=== PATIENT | female | born 1955 | race Caucasian/White ===

== ENCOUNTER → 2023-05-27 13:12 | Outpatient (REF) | payer MEDICARE, SELFPAY | LOC: RSP 13:12 | PROVIDERS: ATTENDING PHYSICIAN Internal Medicine; FAMILY PHYSICIAN Physician Assistant Medical | DX: R06.09 Other forms of dyspnea (principal) | CPT/HCPCS: 94727; 94729; 88738; 94010 ==

== ENCOUNTER 2023-10-30 22:02 | Emergency (ER) | payer MEDICARE, SELFPAY ==
[2023-10-30 22:04] VITALS: BP 174/90
--- NOTE | 2023-10-30 22:14 | ED.GENMED ---
History of Present Illness
<Monica Lopez MD, Resident - Last Filed: 10/31/23 00:45>
General
Chief Complaint: Blood Pressure Problem
Time Seen by Provider: 10/30/23 22:12
History of Present Illness
History of Present Illness:
68-year-old female , Ms. Matthias Shelby with past medical history significant for hypothyroidism and hyperlipidemia, presented to the ER reporting tingling in the left upper extremity and dizziness which started 2 hours ago. Patient reports taking
blood pressure during that episode, which ranged between 187-190 SBP, diastolic BP in high 70s. Patient mentions that she has prior history of dizziness, when standing up from lying/sitting position. Patient also reports having episodes of
tingling few times earlier, she remembers it having after getting physiotherapy sessions for her neck. No history of numbness, weakness in the extremities. During the clinical encounter patient also reports having frontal headache, which started 5
minutes ago, 10/22, nonradiating, along with ringing sensation in the ears, not associated with nausea/vomiting. Patient denies chest pain, SOB, slurred speech, episodes of confusion, weakness in the upper/lower extremities, acute vision changes,
abdominal pain, calf pain, bladder/bowel disturbances or incontinence. Patient states that she was started on Zetia approximately 8 months ago for her hyperlipidemia.
<Wilfredo Ortiz DO - Last Filed: 10/31/23 00:44>
History of Present Illness
History of Present Illness:
HPI: Tingling LUE 2hrs ago assoc'd w/ dizzy. Dizziness ongoing for months, tingling is new. Also has PAULA that started upon arrival. Tinnitus is chronic since chiropractic manipulation.
EXAM:
GENERAL: Well appearing in no distress
HEENT: Moist oral mucosa
CARDIOVASCULAR: No murmurs, normal heart rate, regular rhythm, No chest wall tenderness
PULMONARY: No respiratory distress, breath sounds are clear and equal
ABDOMEN: Soft with no peritoneal signs, no tenderness
NEUROLOGIC: Excellent strength all extremities, no coordination deficits, there is excellent strength with no sensory deficits in the left upper extremity, she has excellent strength in the left median, ulnar, and radial nerve distribution
PSYCHIATRIC: Appropriate mental status, normal insight and judgement
EXTREMITIES: Nontender, no edema, moves all extremities equally
SKIN: No rash, no lesions
TIME OF INITIAL ENCOUNTER: 10:30 PM
NUMBER AND COMPLEXITY OF PROBLEMS ADDRESSED AT THE ENCOUNTER
� Chronic conditions affecting care: Hypothyroidism
� Acute Exacerbation and/or Progression of Chronic Illness: Dizziness is chronic, left upper extremity paresthesias is acute
� Differential Diagnosis includes: Cervical radiculopathy, CVA much less likely, anxiety, hypertensive urgency
AMOUNT AND/OR COMPLEXITY OF DATA TO BE REVIEWED AND ANALYZED
� I performed an independent evaluation of and my interpretation is:
EKG: Sinus 59, leftward axis deviation, no acute ST abnormality
CT: CT brain negative
X-rays:
Laboratory Studies: CBC normal, chemistries unremarkable except BUN slightly elevated
Other:
� Review of other/old records: The patient had colonoscopy in 2021
� Clinical information was obtained by an independent historian: Spoke to family at bedside
� Prescriptions/Medications Considered but not given:
� Further testing considered but not performed:
RISK OF COMPLICATIONS AND/OR MORBIDITY OR MORTALITY OF PATIENT MANAGEMENT
� Social determinants of health affecting care: Lives at home
� Discussion with other providers:
� Escalation of care including admission/observation vs risk of discharge considered: The patient primarily complains of left upper extremity paresthesias however has a stroke scale of 0. CT imaging negative. Blood pressure has
been elevated here does not usually have high blood pressure. On reassessment at 12:40 AM, the patient overall feels well enough to go home. She again has a stroke scale of 0. Labs unremarkable. She states she had a elevated reading at the
sql report analyst office of 150 systolic. She will continue taking her blood pressure readings at home over the next few days and I did give her a prescription for losartan to be taken if her blood pressures remain elevated.
Past History
<Monica Lopez MD, Resident - Last Filed: 10/31/23 00:45>
Past History
ED Past Medical History: Hypothyroidism
ED Past Surgical History: Appendectomy
Social History
Tobacco: Former smoker
Alcohol: Occasional
Drug: None
Personal:
Living: with family
Phy Exam
<Moniac Lopez MD, Resident - Last Filed: 10/31/23 00:45>
Physical Exam
Physical Exam:
GEN: Well appearing, patient appears anxious
Eyes: PERRLA, EOMs intact, no scleral icterus
HENT: NCAT, oral mucosa moist, no JVD, no cervical adenopathy.
Lungs: CTAB, no wheezes, rales, rhonchi, normal chest wall excursion
Cardiac: RRR, S1, S2+, no peripheral edema. Radial pulses 2+ bilat
Abdomen: S, NT, ND, NABS, no masses or hepatosplenomegaly
Neuro: AO x 3, no focal deficits to BUE/BLE, normal sensation throughout, DTRs 2+, cranial nerves II to XII grossly intact.
Skin: No rashes, petechiae. Normal color, no pallor or jaundice.
Psych: cooperative, proper hygiene
Course
<Monica Lopez MD, Resident - Last Filed: 10/31/23 00:45>
Orders/Labs/Results
Orders:
Orders
10/30/23 22:07
Electrocardiogram (*1) Urgent
Reason for Study: Hypertension, Benign
10/30/23 22:08
EKG- Treatment ONCE
10/30/23 22:42
Add On- LAB Urgent
Tests Added?: tsh reflex fT4
0.9% Sodium Chloride 1000 ml [Nss] 1,000 ml IV BOLUS
10/30/23 22:43
CT Head W/o Iv Contrast Urgent
Comment:
Reason For Exam: PAULA, dizzy, tinnitus; LUE tingling
10/30/23 23:14
CMP [Comprehensive Metabolic Panel] Urgent
Complete Blood Count/With Diff Urgent
TSH Reflex To Free T4 Urgent
Troponin I Urgent
Abnormal Lab Results
10/30/23
23:14
BUN 25 H mg/dl
(7-17)
Glucose 100 H mg/dl
(70-99)
10/30/23 23:14
10/30/23 23:14
Vital Signs
Initial and Last Documented VS:
Initial Vital Signs
Temp Pulse Resp BP Pulse Ox
97.8 F 66 22 174/90 100
10/30/23 22:04 10/30/23 22:04 10/30/23 22:04 10/30/23 22:04 10/30/23 22:04
Last Documented Vital Signs
Temp Pulse Resp BP Pulse Ox
97.8 F 55 13 160/71 98
10/30/23 22:04 10/31/23 00:11 10/31/23 00:11 10/31/23 00:11 10/31/23 00:11
Timothylt;Wilfredo Ortiz, - Last Filed: 10/31/23 00:44>
Orders/Labs/Results
Orders:
Orders
10/30/23 22:07
Electrocardiogram (*1) Urgent
Reason for Study: Hypertension, Benign
10/30/23 22:08
EKG- Treatment ONCE
10/30/23 22:42
Add On- LAB Urgent
Tests Added?: tsh reflex fT4
0.9% Sodium Chloride 1000 ml [Nss] 1,000 ml IV BOLUS
10/30/23 22:43
CT Head W/o Iv Contrast Urgent
Comment:
Reason For Exam: PAULA, dizzy, tinnitus; LUE tingling
10/30/23 23:14
CMP [Comprehensive Metabolic Panel] Urgent
Complete Blood Count/With Diff Urgent
TSH Reflex To Free T4 Urgent
Troponin I Urgent
Abnormal Lab Results
10/30/23
23:14
BUN 25 H mg/dl
(7-17)
Glucose 100 H mg/dl
(70-99)
10/30/23 23:14
10/30/23 23:14
Vital Signs
Initial and Last Documented VS:
Initial Vital Signs
Temp Pulse Resp BP Pulse Ox
97.8 F 66 22 174/90 100
10/30/23 22:04 10/30/23 22:04 10/30/23 22:04 10/30/23 22:04 10/30/23 22:04
Last Documented Vital Signs
Temp Pulse Resp BP Pulse Ox
97.8 F 55 13 160/71 98
10/30/23 22:04 10/31/23 00:11 10/31/23 00:11 10/31/23 00:11 10/31/23 00:11
<Monica Lopez MD, Resident - Last Filed: 10/31/23 00:45>
MDM/Problems Addressed
Differential Diagnosis Includes:
Cervical radiculopathy versus TIA versus migraines versus ACS
MDM/Problems Addressed:
CBC
CMP
Troponin
CT head without contrast
<Monica Lopez MD, Resident - Last Filed: 10/31/23 00:45>
*Critical Care Note
Total Time (30-74mins, 75-104mins- exclusive of procedures): Not Applicable
ED Attending Note
<Monica Lopez, MD, Resident - Last Filed: 10/31/23 00:45>
-
Portions of this chart may have been created with voice recognition software.� Occasional wrong word or��sound alike� substitutions may have occurred due to the inherent limitations of voice recognition software.
<Wilfredo Dohertyesther, DO - Last Filed: 10/31/23 00:44>
ED Attending Note
Patient seen and examined by attending physician: Yes
I performed the substantive portion of visit, reviewed & personally made and approve the management plan that is documented in note by myself or OSKAR.: Yes
I performed a history and physical exam of patient and discussed management with resident, I reviewed resident's note and agree with documented findings and plan of care.: Yes
ED Attending Note:
I evaluated patient at bedside
Discharge Plan
Departure
Patient Disposition: Home (Routine Discharge)
Date of Disposition: 10/31/23
Time of Disposition: 00:41
Patient with high blood pressure during this ER visit?: Yes
Discharge Problem:
Paresthesia of arm
Instructions: BLOOD PRESSURE
Prescriptions:
New
losartan 25 mg tablet
25 mg PO DAILY Qty: 30 0RF
No Action
levothyroxine 88 MCG tablet
88 mcg PO DAILY
Referrals:
Mat Ridley PA-C [Primary Care Provider] -
Activity Restrictions/Additional Instructions:
The cause of your symptoms is unclear. The tingling may be related to a pinched nerve in your neck. The CAT scan of the brain is normal. Basic labs as well as thyroid and cardiac testing are all normal. You did have multiple readings of high
blood pressure readings tonight. I sent a prescription to your pharmacy for a very low-dose of losartan. If you have multiple blood pressure readings over the next few days with systolics above 140 then I recommend blood pressure medication.
Follow-up and/or sql report analyst.
Interventions
Interventions:
*Risk Screen - Suicide Last Done: 10/30/23 22:04
*General Assessment Last Done: 10/30/23 22:58
*Neglect/Abuse Screening Last Done: 10/30/23 22:04
ED- Fall Risk Assessment Last Done: 10/30/23 22:58
*ED COVID-19 Vaccine History Last Done: 10/30/23 22:58
ED- Cardiac Assessment Last Done: 10/30/23 22:58
ED- Neurological Assessment Last Done: 10/30/23 22:58
ED- Pulmonary Assessment Last Done: 10/30/23 22:58
Discharge Date and Time
Print Language: GHANAIAN
[2023-10-30 22:58] VITALS: BMI 26.5
[2023-10-30 23:00] VITALS: BP 175/95
[2023-10-30] MEDS: NSS 1000 IV (23:16)
[2023-10-30 23:29] LABS: % Basophils 0.6 % (0-2); % Eosinophils 2.8 % (0-6); % Immature Granulocytes 0.4 % (0-0.5); % Lymphocytes 30.7 % (20.5-51.1); % Monocytes 5.7 % (1.7-9.3); % Neutrophils 59.8 % (42.2-75.2); Absolute Eosinophils 0.2 10^3/uL (0-0.7); Absolute Lymphocytes 1.7 10^3/uL (1.2-3.4); Absolute Monocytes 0.3 10^3/uL (0.1-0.6); Absolute Neutrophils 3.3 10^3/uL (1.4-6.5); Hematocrit 42.9 % (37.0-47.0); Mean Corpuscular Hgb 30.5 pg (27.0-31.0); Mean Corpuscular Volume 87.4 fL (81.0-99.0); Mean Platelet Volume 10.1 fL (7.4-10.4); Nucleated Red Blood Cells % 0 %; Platelet Count 285 10^3/uL (130-400); Red Blood Cell Count 4.91 10^6/uL (4.20-5.40); White Blood Cell Count 5.4 10^3/uL (4.8-10.8)
[2023-10-30 23:38] VITALS: BP 149/71
[2023-10-30 23:41] LABS: ALT (SGPT) 14 U/L (0-35); AST (SGOT) 24 U/L (14-36); Albumin 4.9 g/dl (3.5-5.0); Alkaline Phosphatase 92 U/L (38-126); Blood Urea Nitrogen 25 mg/dl (7-17); Calcium 10.2 mg/dl (8.4-10.2); Carbon Dioxide 27 mmol/L (22-30); Chloride 103 mmol/L (98-107); Estimated Creatinine Clearance 59 ml/min; Glucose 100 mg/dl (70-99); Potassium 3.6 mmol/L (3.5-5.1); Sodium 140 mmol/L (135-145); Total Bilirubin 0.9 mg/dl (0.2-1.3); Total Protein 7.6 g/dl (6.3-8.2); eGFR > 60.00
[2023-10-31 00:01] LABS: Troponin I < 0.012 ng/ml
[2023-10-31 00:11] VITALS: BP 160/71
[2023-10-31 00:12] LABS: TSH Reflex To Free T4 1.16 uIU/ml (0.47-4.68)
== END 2023-10-31 01:17 | disposition home or self-care (01) ==
LOC: EMR 22:02
PROVIDERS: Emergency Medicine; EMERGENCY PHYSICIAN Emergency Medicine; PRIMARYCARE PHYSICIAN Physician Assistant Medical
DX: R20.2 Paresthesia of skin (principal); R42 Dizziness and giddiness; H93.19 Tinnitus, unspecified ear; R03.0 Elevated blood-pressure reading, without diagnosis of hypertension; E03.9 Hypothyroidism, unspecified; E78.5 Hyperlipidemia, unspecified; Z87.891 Personal history of nicotine dependence
CPT/HCPCS: 99284; 96360; 70450; 80053; 84443; 84484; 85025; 93005

== ENCOUNTER → 2024-05-22 13:49 | Outpatient (REF) | payer OTHER, SELFPAY | LOC: RAD 13:49 | PROVIDERS: ATTENDING PHYSICIAN Physician Assistant Medical | DX: E03.9 Hypothyroidism, unspecified (principal); Z87.891 Personal history of nicotine dependence; Z78.0 Asymptomatic menopausal state; M85.80 Other specified disorders of bone density and structure, unspecified site | CPT/HCPCS: 76770; 77080 ==

== ENCOUNTER → 2024-09-11 13:43 | Outpatient (REF) | payer OTHER, SELFPAY | LOC: WDC 13:43 | PROVIDERS: ATTENDING PHYSICIAN Obstetrics & Gynecology Gynecology; FAMILY PHYSICIAN Physician Assistant Medical | DX: Z12.39 Encounter for other screening for malignant neoplasm of breast (principal); Z12.31 Encounter for screening mammogram for malignant neoplasm of breast | CPT/HCPCS: 77063; 77067 ==

== ENCOUNTER → 2024-10-16 14:03 | Outpatient (REF) | payer OTHER, SELFPAY | LOC: RCS 14:03 | PROVIDERS: ATTENDING PHYSICIAN Internal Medicine; FAMILY PHYSICIAN Physician Assistant Medical | DX: R07.9 Chest pain, unspecified (principal); E78.2 Mixed hyperlipidemia | CPT/HCPCS: 93306 ==

== ENCOUNTER → 2024-11-06 08:00 | Outpatient (REF) | payer OTHER, SELFPAY | LOC: HWRCS 08:00 | PROVIDERS: ATTENDING PHYSICIAN Internal Medicine; FAMILY PHYSICIAN Physician Assistant Medical | DX: R07.9 Chest pain, unspecified (principal); E78.2 Mixed hyperlipidemia | CPT/HCPCS: 78452; 93017; A9500 ==